=== PATIENT | female | born 1975 | race Caucasian/White ===

== ENCOUNTER 2018-07-20 12:09 | Emergency (ER) | payer OTHER ==
[~2018-07-20] VITALS: Ht 175.3 cm; Wt 63.5 kg
== END 2018-07-20 14:32 | disposition home or self-care (01) ==
LOC: ER 12:09
DX: R10.2 Pelvic and perineal pain (principal)

== ENCOUNTER 2020-07-15 09:57 | Emergency (ER) | payer OTHER ==
[~2020-07-15] VITALS: Ht 175.3 cm; Wt 66.7 kg
== END 2020-07-15 14:57 | disposition home or self-care (01) ==
LOC: ER 09:57
DX: R10.31 Right lower quadrant pain (principal)

== ENCOUNTER 2020-08-27 14:00 | Emergency (ER) | payer OTHER ==
[~2020-08-27] VITALS: Ht 175.3 cm; Wt 69.4 kg
== END 2020-08-27 18:48 | disposition home or self-care (01) ==
LOC: ER 14:00
DX: R07.89 Other chest pain (principal)